=== PATIENT | female | born 1945 | race Caucasian/White ===

== ENCOUNTER 2017-01-06 09:29 | Day surgery (SDC) | payer MEDICARE, OTHER ==
--- NOTE | ~2017-01-06 | EGD ---
EGD REPORT [facility] [address] [id number] NAME: YOSELIN CHISHOLM : [birth year] [place] [facility] [place] [id number] AGE: 71 ADM/REG DATE : 01/06/17 MR#: [id number] REPORT SERV DATE: 01/06/17 DICTATED BY: JUSTINA MUÑOZ DATE: 01/06/17 REPORT STATUS : Draft [facility]ANS[facility] BY: [facility] DATE: 01/06/17 Endoscopy Center Patient Name: Yoselin Chisholm Date of : 1945 Attending MD: JUSTINA MUÑOZ MD Procedure Date No Time: 01/06/2017 Procedure: Upper GI endoscopy Indications: Follow-up of acute gastric ulcer, Gastroparesis Referring MD: JULIUS VALENTIN III, MD Medicines: as per anesthesia Complications: Vasovagal reaction Procedure: Pre-Anesthesia Assessment: - ASA Grade Assessment: III - A patient with severe systemic disease. After obtaining informed consent, the endoscope was passed under direct vision. Throughout the procedure, the patient's blood pressure, pulse, and oxygen saturations were monitored continuously. The [facility] [id number] was introduced through the mouth, and advanced to the prepyloric region, stomach. The upper GI endoscopy was accomplished without difficulty. The patient tolerated the procedure poorly due to the patient's cardiovascular instability (vasovagal reaction). Findings: A prior Daniella fundoplication was found at the gastroesophageal junction. This was characterized by healthy appearing mucosa. A medium amount of food (residue) was found in the gastric body. One superficial gastric ulcer was found in the gastric antrum. The lesion was 5 mm in largest dimension. A benign-appearing, intrinsic severe stenosis was found at the pylorus. This was non-traversed. Impression: - A Daniella fundoplication was found. - A medium amount of food (residue) in the stomach. - Gastric ulcer. - Gastric stenosis was found at the pylorus. Recommendation: - Observe patient in GI recovery unit for observation. - Continue present medications. Procedure Code(s): --- Professional --- 79558, 52, Esophagogastroduodenoscopy, flexible, transoral; diagnostic, including collection of EGD REPORT [address] [address] NAME: YOSELIN CHISHOLM : [birth year] [place] [facility] [place] [id number] AGE: 71 ADM/REG DATE : 01/06/17 MR#: [id number] REPORT SERV DATE: 01/06/17 DICTATED BY: JUSTINA MUÑOZ. 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 All rights reserved. The codes documented in this report are preliminary and upon cook fish and chips review may be revised to meet current compliance requirements. JUSTINA MUÑOZ MD 01/06/2017 12:04 PM This report has been signed electronically. Number of Addenda: 0 Note Initiated On: 01/06/2017 11:26 AM Scope Withdrawal Time 0 hours 0 minutes 0 seconds [address] [id number]
[~2017-01-06 09:29] MED LIST: ACIPHEX PO; ALTA5 PO; AMB10 PO; ASAB PO; AZILECT1 MG PO; B12250T PO; BUSPAR15 M1 PO; CARASPUDL PO; CELEXA40 MG PO; CYANO1000T PO; DIOV160 PO; EXCEDRIN EXTRA1 EACH PO; EXCEDRINTB PO; HEMOCYTET PO; NEXIUM20 M1 PO; NEXIUM40 PO; NORV10 PO; PRAVAC PO; PROZAC PO; REMERON30 MG PO; STALEVO PO; SUCR PO; T PO; TYLENOL PM PO; [UNRECOGNIZED DRUG - OTHER] PO
== END 2017-01-06 23:59 | disposition home or self-care (01) ==
LOC: DMU 09:29
PROVIDERS: Internal Medicine Gastroenterology
PROC: 0DJ08ZZ Inspection of Upper Intestinal Tract, Via Natural or Artificial Opening Endoscopic (ICD-10-PCS; principal; 2017-01-06 11:00)
DX: K25.9 Gastric ulcer, unspecified as acute or chronic, without hemorrhage or perforation (principal); K25.3 Acute gastric ulcer without hemorrhage or perforation; K31.1 Adult hypertrophic pyloric stenosis; K31.84 Gastroparesis; Z98.0 Intestinal bypass and anastomosis status; I10 Essential (primary) hypertension; E78.00 Pure hypercholesterolemia, unspecified; K21.9 Gastro-esophageal reflux disease without esophagitis; F41.9 Anxiety disorder, unspecified; D64.9 Anemia, unspecified; Z86.73 Personal history of transient ischemic attack (TIA), and cerebral infarction without residual deficits; Z79.899 Other long term (current) drug therapy; Z88.8 Allergy status to other drugs, medicaments and biological substances
CPT/HCPCS: 71010; 93005; J0461